=== PATIENT | female | born 1950 | race Caucasian/White ===

== ENCOUNTER 2023-03-20 11:36 | Emergency (ER) | payer OTHER, SELFPAY ==
[2023-03-20] VITALS (10 sets, daily range): BP systolic 118–179; BP diastolic 61–96; PULSE 61–82; RESP 15–18; TEMP 36.6; O2SAT 97–100
--- NOTE | ~2023-03-20 | CT_ITS ---
EXAMINATION: CT brain wo con DATE: 03/20/2023 11:45 INDICATION: Left hemiparesis, facial droop, slurred speech. TECHNIQUE: Computed tomography (CT) of the head was performed without intravenous contrast. The mA wa s adjusted according to patient size. Iterative reconstruction technique was employed. Exam dose: 60 5.33 mGy-cm total exam DLP. COMPARISON: None FINDINGS: No intracranial mass lesion or hemorrhage or cerebrovascular accident is detected. No midli ne shift or mass effect. No subdural or epidural hematoma. Mild bilateral carotid siphon internal carotid artery calcifications. Nonspecific diminished attenuat ion of cerebral white matter, likely due to chronic small vessel ischemic changes. The mastoid air cells and included paranasal sinuses are normally developed and aerated. No fracture or bone destruction of the cranial vault. IMPRESSION: Cerebral atherosclerosis and chronic small vessel ischemic changes of the cerebral white matter No acute intracranial finding Dr. Nice telephoned the report on 03/30/2023 at 1153 hours to emergency room physician Dr. Betancourt. Reviewed, dictated and finalized at [facility]. Reviewed, dictated and finalized at [facility]. IMPRESSION: Cerebral atherosclerosis and chronic small vessel ischemic changes of the cerebral white matter No acute intracranial finding Dr. Nice telephoned the report on 03/30/2023 at 1153 hours to emergency room promise Betancourt.
--- NOTE | ~2023-03-20 | CT_ITS ---
EXAMINATION: CTA brain carotid DATE: 03/20/2023 13:04 INDICATION: CVA TECHNIQUE: Computed tomographic angiography (CTA) of the head and neck was performed with 100 mL Omni paque-350 intravenous contrast. CTA of the neck was performed with intravenous contrast. Automated ex posure control and iterative reconstruction technique were employed. The dose-length product was 1153 .19 mGy-cm. Maximum intensity projection and volume rendered 3D-reconstructions were created by the t echnologist on a separate workstation. COMPARISON: CT brain, same date. FINDINGS: CTA HEAD: No large vessel occlusion, aneurysm, high flow vascular malformation, nidus or extravasation. Severe diffuse narrowing of the right V4 distal vertebral segment. Persistent origin of the left PHYSICIAN GYNECOLOGIST. Hypoplastic left P1 segment. Circumscribed, scalloped lytic lesions bilaterally in the posterior occi pital bone, no periosteal reaction or soft tissue component and no obvious arterial enhancement. Symm etric parenchymal enhancement. Patent cerebral veins. CTA NECK: Aortic arch and proximal great vessels: Minimal atherosclerotic calcifications at the visualized aort ic. Normal arch anatomy. Right common carotid, carotid bifurcation, and internal carotid artery: Calcified plaque at the bifur cation.There is 0% stenosis of the proximal right internal carotid artery relative to normal distal a rtery lumen diameter (NASCET criteria). Left common carotid, carotid bifurcation, and internal carotid artery: No plaque.There is 0% stenosis of the proximal left internal carotid artery relative to normal distal artery lumen diameter (NASCET criteria). Vertebral arteries: No significant plaque or stenosis in the neck. Left vertebral artery is dominant. Other findings: 8mm left thyroid nodule, requiring no additional workup. Biapical pleural scarring. M osaic attenuation in the lungs, with interlobular septal thickening. IMPRESSION: Severe narrowing of the right V4 segment, may represent hypoplasia or long segment stenosis. Dissecti on considered less likely but not excluded. Lytic occipital lesions likely representing prominent arachnoid granulations or venous lakes, metasta ses considered less likely but not excluded. Mild pulmonary edema. Results reported telephonically to Dr. Rubin by Dr. Lua at 3:48 PM on 03/20/2023. Reviewed, dictated and finalized at [facility]. IMPRESSION: Severe narrowing of the right V4 segment, may represent hypoplasia or long segm ent stenosis. Dissection considered less likely but not excluded. Lytic occipital lesions likely representing prominent arachnoid granulations or venous lakes, metastases considered less likely but not excluded. Mild pulmonary edema. Results reported telephonically to Dr. Ruibn by Dr. Lua at 3:48 PM on 023.
--- NOTE | ~2023-03-20 | XR_ITS ---
XR chest 1V portable DATE: 03/20/2023 12:02 INDICATION: Weakness. Stroke symptoms. TECHNIQUE: Portable AP chest on 03/20/2023 at 1200 hours COMPARISON: None FINDINGS: No pulmonary infiltrate or consolidation, pleural effusion or pulmonary vascular congestion or pneumothorax is evident. The cardiac and mediastinal sweats. Unremarkable for AP projection. Diffuse osteopenia. IMPRESSION: No active cardiopulmonary disease Reviewed, dictated and finalized at [facility].
--- NOTE | 2023-03-20 11:39 | ECG_ITS ---
Measurements Intervals [place] Rate: 78 P: 26 CA: 156 QRS: 3 QRSD: 90 T: 0 QT: 316 QTc: 360 Interpretive Statements SINUS RHYTHM ATRIAL PREMATURE COMPLEX CONSIDER INFERIOR INFARCT, AGE INDETERMINATE BORDERLINE T WAVE ABNORMALITY- ANTEROLATERAL LEADS BASELINE ARTIFACT- II, III, V1-V6 ABNORMAL ECG NO PREVIOUS ECG AVAILABLE FOR COMPARISON Electronically Signed On 03-20-2023 16:34:13 CDT by Jeffry Rose D.O.
--- NOTE | 2023-03-20 11:49 | ED.NEUROSD ---
HPI - Neuro Symptoms/Deficit General Chief Complaint: Suspected CVA <Benjamín Calzada MD - Last Filed: 03/25/23 20:04> Stated Complaint: Stroke symptoms <Benjamín Calzada MD - Last Filed: 03/25/23 20:04> Time Seen by Provider: 03/20/23 11:42 <Benjamín Calzada MD - Last Filed: 03/25/23 20:04> History of Present Illness HPI Narrative: Patient is a 72-year-old female who presents ER with sudden onset stroke symptoms. Last known well was 11 AM. She was walking at the [employer] when she developed left-sided weakness and heaviness as well as slurred speech. She has minor facial paralysis on the left side as well. She had a CVA 9 months ago at [facility]. She has been doing well since then. She is on no antiplatelet or blood thinning medications. No trauma. <Benjamín Calzada MD - Last Filed: 03/25/23 20:04> Related Data Home Medications: Home Medications Medication Instructions Recorded Confirmed citalopram 40 mg tablet mg 03/20/23 03/20/23 gabapentin 100 mg capsule mg 03/20/23 <Benjamín Calzada MD - Last Filed: 03/25/23 20:04> Allergies/Adverse Reactions: Allergies Allergy/AdvReac Type Severity Reaction Status Date / Time No Known Allergies Allergy Verified 03/20/23 12:13 <Benjamín Calzada MD - Last Filed: 03/25/23 20:04> Review of Systems Review of Systems: All systems reviewed & are unremarkable except as noted in HPI and below <Benjamín Calzada MD - Last Filed: 03/25/23 20:04> Cardiovascular: Cardiovascular: Reports no additional cardiovascular complaints <Benjamín Calzada MD - Last Filed: 03/25/23 20:04> Respiratory: Respiratory: Reports no additional respiratory complaints <Benjamín Calzada MD - Last Filed: 03/25/23 20:04> Gastrointestinal: Gastrointestinal: Reports no additional gastrointestinal complaints <Benjamín Calzada MD - Last Filed: 03/25/23 20:04> Musculoskeletal: Musculoskeletal: Reports no additional musculoskeletal complaints <Benjamín Calzada MD - Last Filed: 03/25/23 20:04> Integumentary/Breasts: Skin/Breast: Reports system reviewed and no additional complaints, except as docu <Benjamín Calzada MD - Last Filed: 03/25/23 20:04> Neurologic: Reports Abnormal speech present, Reports abnormal gait, Denies syncope, Denies frequent falls, Denies headache(s), Reports focal weakness, Denies tingling and Denies paresthesias <Benjamín Calzada MD - Last Filed: 03/25/23 20:04> PMFSH Past Medical History Medical History: Medical History (Updated 03/21/23 @ 00:01 by Background Daemon) Anxiety Asthma CVA (cerebral vascular accident) Depression <Benjamín Calzada MD - Last Filed: 03/25/23 20:04> Surgical History Surgical History: Surgical History (Updated 03/20/23 @ 12:03 by Benjamín Calzada MD) History of cholecystectomy History of hysterectomy <Benjamín Calzada MD - Last Filed: 03/25/23 20:04> Exam Narrative: GENERAL: Anxious-appearing, well-nourished, and in no acute distress. HEAD: Normocephalic, atraumatic. EYES: PERRL and EOMI. ENT: Mucous membranes moist. NECK: Supple. CHEST: Clear to auscultation. No respiratory distress. HEART: Regular rate and rhythm. Normal peripheral pulses. ABDOMEN: Soft, nontender, nondistended. EXTREMITIES: Normal range of motion. No edema. SKIN: Warm, dry, no rash. NEURO: Alert and oriented x3. Mild dysarthria, left upper extremity drift, left lower extremity drift, left facial droop, difficulty with finger-nose testing on the right, patient has the ability to perform heel/medrano testing on the left but is much slower. No visual disruption. See NIH stroke scale section of chart. PSYCH: Normal mood and affect. <Benjamín Calzada MD - Last Filed: 03/25/23 20:04> Course Course Emergency Course: 1214: Patient still with a stroke scale of 5 though paralysis of the face and slurred speech have mildly improved they are abnormal. I discussed th
[2023-03-20 12:04] LABS: Basophils Absolute Auto 0.1 K/mm3 (0.0-0.1); Basophils Percent Auto 1.1 % (0.2-1.2); Eosinophils Absolute Auto 0.2 K/mm3 (0-0.3); Eosinophils Percent Auto 4.2 % (0-4.4); Hematocrit 39.7 % (37.0-47.0); Hemoglobin 13.6 g/dL (12.0-15.0); Immature Granulocyte Absolute 0.01 K/mm3 (0.00-0.031); Immature Granulocyte Percent A 0.2 % (0-0.5); Lymphocytes Absolute Auto 1.53 K/mm3 (0.9-3.2); Lymphocytes Percent Auto 27.9 % (18.3-44.2); Mean Corpuscular HGB Conc 34.3 g/dl (32-36); Mean Corpuscular Hemoglobin 31.3 pg (26-34); Mean Corpuscular Volume 91.5 fl (80-100); Mean Platelet Volume 9.5 fl (7.4-10.4); Monocytes Absolute Auto 0.5 K/mm3 (0.1-0.6); Monocytes Percent Auto 8.2 % (2.6-8.5); Neutrophils Absolute Auto 3.2 K/mm3 (1.3-6.7); Neutrophils Percent Auto 58.4 % (45.5-73.1); Platelet Count Result 214 k/mm3 (150-375); Red Blood Count 4.34 M/mm3 (4.2-5.4); Red Cell Distribution Width 12.2 % (11.5-14.5); White Blood Count 5.5 K/mm3 (4.5-10.0)
[2023-03-20 12:14] LABS: Alanine Aminotransferase 16 U/L (6-35); Albumin Level 3.9 g/dL (3.5-5.1); Alkaline Phosphatase 71 U/L (38-126); Anion Gap 8 mmol/L (8-16); Aspartate Amino Transferase 22 U/L (14-36); Bilirubin,Total 0.4 mg/dL (0.2-1.3); Blood Urea Nitrogen 18 mg/dL (7-17); Calcium 8.6 mg/dL (8.4-10.2); Carbon Dioxide 25 mmol/L (22-30); Chloride 105 mmol/L (98-107); Estimated CRCL calculation 73 ml/min; Estimated Glomerular Filt Rate > 60; Glucose 120 mg/dL (65-110); Potassium 3.6 mmol/L (3.4-5.0); Sodium 138 mmol/L (137-145)
[2023-03-20 12:20] LABS: Prothrombin Time 13.8 Seconds (11.1-14.7)
[2023-03-20 12:21] LABS: Partial Thromboplastin Time 24.9 SECONDS (22.3-36.8)
[2023-03-20 12:25] LABS: Troponin I < 0.012 ng/mL (0.000-0.034)
[2023-03-20] MEDS: ONDANSETRON INJ 4 MG/2 ML VIAL (12:45)
--- NOTE | 2023-03-20 16:16 | PC.NURSE ---
accepted to Tomi Singleton Rm 496-ICU ALS - [facility] ETA 19p Trip # [id number]
--- NOTE | 2023-03-20 17:44 | PC.NURSE ---
Report given to ICU @ [facility], Room # 498. Elizabeth [place]
--- NOTE | 2023-03-20 19:16 | PC.NURSE ---
Assumed care from MIKAELA Mccarthy at this time. Pt awaiting transport to [facility]. ETA was 1900.
[2023-03-24 09:34] LABS: Glucose Point of Care 151 mg/dl (65-105)
== END 2023-03-20 19:22 | disposition short-term general hospital (02) ==
PROVIDERS: Emergency Medicine; Emergency Provider General Practice
DX: I63.9 Cerebral infarction, unspecified (principal); R29.705 NIHSS score 5; J45.909 Unspecified asthma, uncomplicated; F41.9 Anxiety disorder, unspecified; F32.A Depression, unspecified; Z86.73 Personal history of transient ischemic attack (TIA), and cerebral infarction without residual deficits; Z90.49 Acquired absence of other specified parts of digestive tract; Z90.710 Acquired absence of both cervix and uterus; I49.1 Atrial premature depolarization; R94.31 Abnormal electrocardiogram [ECG] [EKG]; I67.2 Cerebral atherosclerosis
CPT/HCPCS: 36415; 37195; 70450; 70496; 70498; 71045; 80053; 82948; 84484; 85025; 85610; 85730; 93005; 96374; 99285; J2405; J2997; Q9967